=== PATIENT | female | born 1975 | race Two or more races ===

== ENCOUNTER 2020-03-24 18:53 | Emergency (ER) | payer SELFPAY ==
[~2020-03-24] VITALS: Ht 157.5 cm; Wt 68.0 kg
[2020-03-24] MEDS ORDERED: HYDROCODONE/ACETAMINOPHEN 5/325MG TABLET PO ONE (19:15)
[2020-03-24] MEDS ORDERED: KETOROLAC 30MG/ML VIAL IM ONE (19:15)
[2020-03-24 19:53] VITALS: BP 173/87
== END 2020-03-24 20:45 | disposition home or self-care (01) ==
LOC: ER 18:53
DX: S52.501A Unspecified fracture of the lower end of right radius, initial encounter for closed fracture (principal); Z98.890 Other specified postprocedural states; W18.30XA Fall on same level, unspecified, initial encounter; Y93.51 Activity, roller skating (inline) and skateboarding; Y92.89 Other specified places as the place of occurrence of the external cause; Y99.8 Other external cause status
CPT/HCPCS: 29125; 73110; 73130; 96372; 99284; J1885